=== PATIENT | male | born 1960 | race Caucasian/White ===

== ENCOUNTER 2019-09-23 11:06 | Emergency (ER) | payer BC, OTHER ==
[~2019-09-23] VITALS: Ht 188 cm; Wt 95.3 kg
[2019-09-23 12:41] VITALS: BP 106/71
== END 2019-09-23 13:26 | disposition home or self-care (01) ==
LOC: ER 11:06
DX: R11.2 Nausea with vomiting, unspecified (principal); R51 Headache; R63.0 Anorexia; F17.210 Nicotine dependence, cigarettes, uncomplicated